=== PATIENT | male | born 1980 | race Caucasian/White ===

== ENCOUNTER 2020-01-30 14:07 | Emergency (ER) | payer OTHER, SELFPAY ==
--- NOTE | 2020-01-30 14:14 | ED.GENADULT ---
HPI - General Adult General Chief complaint: Eye Problems Stated complaint: Eye issues Time Seen by Provider: 01/30/20 14:24 Source: patient Mode of arrival: ambulatory Limitations: no limitations History of Present Illness HPI narrative: 39-year-old male patient presents to the [facility] with complaints of bilateral eye pain x1 week. Patient states he noticed a he has pain behind bilateral eyes and notices more in the evening time when it starts to get dark out. Patient denies any vision changes. Denies any itching or irritation to the eyes. Patient denies any discharge. Denies any fevers, body aches or chills. Patient denies wearing contacts or glasses. Patient denies taking anything for his pain. Related Data Home Medications Medication Instructions Recorded Confirmed gabapentin 600 mg PO TID 06/24/19 08/25/19 aspirin 81 mg PO DAILY 01/30/20 01/30/20 celecoxib 200 mg DAILY 01/30/20 01/30/20 oxycodone-acetaminophen 1 tablet Q4-5H PRN 01/30/20 01/30/20 Allergies Allergy/AdvReac Type Severity Reaction Status Date / Time No Known Allergies Allergy Verified 01/30/20 14:24 Review of Systems Review of Systems: Narrative: CONSTITUTIONAL: Denies fever, chills, or sweats. EYES: Denies visual changes, redness, or discharge. Positive pain behind bilateral eyes x1 week in the evening time. ENT: Denies rhinorrhea, congestion, sore throat, or otalgia. CARDIOVASCULAR: Denies chest pain, palpitations, or edema. RESPIRATORY: Denies cough or dyspnea. GASTROINTESTINAL: Denies abdominal pain, nausea, vomiting, or diarrhea. GENITOURINARY: Denies dysuria or hematuria. SKIN: Denies rash or itching. MUSCULOSKELETAL: Denies back pain, joint pain, or myalgia. NEUROLOGIC: Denies headache, numbness, or weakness. PSYCHIATRIC: Denies anxiety or depression. [facility] Past Medical History Medical History (Updated 01/30/20 @ 14:33 by DALLAS Cueto) Carpal tunnel syndrome Degenerative joint disease Hip replacement planned Left Surgical History Surgical History (Updated 01/30/20 @ 14:16 by DALLAS Cueto) H/O shoulder surgery Left Social History Social History Gender identity (if verbalized by the patient): Male Comments At the time of my signature I agree with nursing past medical history, surgical, social, and family history. There is no relevant family history pertinent to the presenting complaint. Exam Narrative: Exam Narrative: GENERAL: Well-appearing, well-nourished, and in no acute distress. HEAD: Normocephalic, atraumatic. EYES: PERRLA and EOM intact without limitation or complaint of pain, no periorbital soft tissue swelling ,no erythema, warmth or tenderness noted, no obvious deformity. No crusting or swelling.no tearing or draining.No photophobia. No nystagmus No FB or lesion on lid eversion. Corneas grossly clear, no obvious FB or hyphens/hypopyon. No injection to sclera. Lids and lashes clear. ENT: Nares clear, no rhinorrhea or epistaxis. Mucous membranes moist. NECK: Supple. No lymphadenopathy CHEST: Clear to auscultation. No respiratory distress. HEART: Regular rate and rhythm. No murmur heard. Normal peripheral pulses. ABDOMEN: Soft, nontender, nondistended, normal active bowel sounds. EXTREMITIES: Normal range of motion. No edema. SKIN: Warm, dry, no rash. NEURO: No focal deficits. Alert and oriented x3. Course Vital Signs Vital signs: Vital Signs Temperature 36.6 C 01/30/20 14:19 Pulse Rate 69 01/30/20 14:19 Respiratory Rate 01/30/20 14:19 Blood Pressure 122/80 01/30/20 14:19 Pulse Oximetry 98 01/30/20 14:19 Temperature 36.6 C 01/30/20 14:19 Pulse Rate 69 01/30/20 14:19 Respiratory Rate 01/30/20 14:19 Blood Pressure 122/80 01/30/20 14:19 Pulse Oximetry 98 01/30/20 14:19 Vital signs reviewed. Medical Decision Making Differential Diagnosis Differential Diagnosis: Differential diagnosis: Co
[2020-01-30 14:19] VITALS: BP 122/80; PULSE 69; RESP 16; TEMP 36.6; O2SAT 98
== END 2020-01-30 14:35 | disposition home or self-care (01) ==
PROVIDERS: Emergency Provider Nurse Practitioner Family; PCP Physician Assistant
DX: H57.13 Ocular pain, bilateral (principal); Z96.643 Presence of artificial hip joint, bilateral
CPT/HCPCS: 99212; G0463

== ENCOUNTER 2020-12-18 23:04 | Emergency (ER) | payer OTHER, SELFPAY ==
--- NOTE | ~2020-12-18 | XR_ITS ---
EXAMINATION: XR ribs LT 2V w CXR 2V DATE: 12/18/2020 23:32 INDICATION: Left rib pain. Fall. TECHNIQUE: Frontal and lateral views of the chest and 3 views of the left ribs were obtained. COMPARISON: None. FINDINGS: CHEST TWO VIEWS: There is no pneumonia, pleural effusion, or pneumothorax. The heart size is normal. There are prominent paracardial fat pads. LEFT RIBS: There are changes of distal left clavicle resection. There are radiopaque markers at dista l clavicle and coracoid process of left scapula. There is no rib fracture. IMPRESSION: 1. No rib fracture. Reviewed, dictated and finalized at location A. IMPRESSION: 1. No rib fracture.
[2020-12-18 23:11] VITALS: BP 144/81; PULSE 62; RESP 18; TEMP 36.1; O2SAT 99
[2020-12-18] MEDS: IBUPROFEN 600 MG TABLET PO (23:55)
[2020-12-18] MEDS: HYDROcodone/acetaminophen (*CRX) 5-325 MG TABLET 1 TAB PO (23:55)
--- NOTE | 2020-12-19 00:23 | ED.FALL ---
HPI - Fall General Chief Complaint: Fall Stated Complaint: left side pain after fall today Time Seen by Provider: 12/18/20 23:39 History of Present Illness HPI Narrative: Patient is a 40-year-old male who presents ER with left-sided rib pain. Patient was in his [employer] boat when he slipped and fell onto a metal piece of the boat. He did not fall out of the boat. He reports he laid inside the boat for about 20 minutes due to pain and discomfort. No difficulty breathing. Pain is worse with movement. Patient did not strike his head or lose consciousness. Related Data Allergies Allergy/AdvReac Type Severity Reaction Status Date / Time No Known Allergies Allergy Verified 12/18/20 23:40 Review of Systems Cardiovascular: Cardiovascular: Reports chest pain and Denies radiating jaw, neck or arm pain Respiratory: Respiratory: Denies cough and Denies dyspnea Gastrointestinal: Gastrointestinal: Denies abdominal pain, Denies nausea and Denies vomiting Genitourinary: Genitourinary: Reports no additional male genitourinary complaints and Denies hematuria [facility] Past Medical History Medical History (Updated 12/19/20 @ 00:29 by Chon Reed MD) Carpal tunnel syndrome Degenerative joint disease Hip replacement planned Left Surgical History Surgical History (Updated 01/30/20 @ 14:16 by DALLAS Cueto) H/O shoulder surgery Left Social History Social History Gender identity (if verbalized by the patient): Male Exam Narrative: Exam Narrative: GENERAL: Well-appearing, well-nourished, and in no acute distress. HEAD: Normocephalic, atraumatic. CHEST: Clear to auscultation. No respiratory distress. Tender palpation left lateral chest wall just posterior to mid axillary line over rib 9. No swelling or bruising. No crepitus. HEART: Regular rate and rhythm. Normal peripheral pulses. EXTREMITIES: Normal range of motion. No edema. SKIN: Warm, dry, no rash. NEURO: Alert and oriented x3. PSYCH: Normal mood and affect. Course Course Emergency Course: Patient informed of results. [place] and ibuprofen for pain here. Anti-inflammatories for home. Vital Signs Vital signs: Vital Signs Temperature 97.0 F L 05/05/21 23:11 Pulse Rate 62 12/18/20 23:11 Respiratory Rate 18 12/18/20 23:11 Blood Pressure 144/81 H 12/18/20 23:11 Pulse Oximetry 99 12/18/20 23:11 Temperature 97.0 F L 12/18/20 23:11 Pulse Rate 62 12/18/20 23:11 Respiratory Rate 18 12/18/20 23:11 Blood Pressure 144/81 H 12/18/20 23:11 Pulse Oximetry 99 12/18/20 23:11 MDM - Fall Imaging Data Radiologist's impression: ITS Impressions Ribs w/Chest X-Ray 12/18/20 23:33 IMPRESSION: 1. No rib fracture. Discharge Plan Discharge Clinical Impression: Chest wall contusion Patient Disposition: Home, Self-Care Condition: Stable Instructions: Chest Wall Pain (ED) Additional Instructions: Return the ER if you cannot breathe, you have fever over 100.4 ?F, you have new productive cough, you have additional concerns. Take anti-inflammatories to decrease your pain. Prescriptions: New naproxen 500 mg tablet 500 mg PO BID Qty: 14 RF: 0 Follow-up/Referrals: Sharee,TASHIA Villalobos [Primary Care Provider] - 1 Week
[2020-12-19 00:31] VITALS: BP 119/85; PULSE 66; RESP 16; TEMP 36.4; O2SAT 96
== END 2020-12-19 00:40 | disposition home or self-care (01) ==
PROVIDERS: Emergency Provider Emergency Medicine; PCP Physician Assistant
DX: S20.212A Contusion of left front wall of thorax, initial encounter (principal); Y93.19 Activity, other involving water and watercraft; W01.118A Fall on same level from slipping, tripping and stumbling with subsequent striking against other sharp object, initial encounter
CPT/HCPCS: 71046; 71100; 99283; A9270

== ENCOUNTER 2021-03-28 10:29 | Emergency (ER) | payer OTHER, SELFPAY ==
[2021-03-28 10:40] VITALS: BP 144/93; PULSE 70; RESP 18; TEMP 36.8; O2SAT 99
[2021-03-28 10:51] VITALS: BP 144/93; PULSE 70; RESP 18; TEMP 36.8; O2SAT 99
--- NOTE | 2021-03-28 11:01 | ED.EYEPROB ---
HPI - Eye Problem General Chief complaint: Eye Problems Stated complaint: eye problems Time Seen by Provider: 03/28/21 10:43 Source: patient and RN notes reviewed Mode of arrival: ambulatory Limitations: no limitations History of Present Illness HPI Narrative: Patient presents today complaining of burning to the left eye since 1400 yesterday while he was fishing. Denies known foreign body or injury to the eye. Reports possibly feeling foreign body sensation, and states the burning sensation that he feels is in 1 position in the lateral eye and does not move. Reports photophobia, but denies vision change. Rubbing or pushing on the eye decreases symptoms. He has tried eyedrops and flushing the eye without relief. He does not wear glasses or contacts. Upon arrival, patient's visual acuity in the left eye was 20/25 and right eye was 20/15. MD chief complaint: eye pain Related Data Allergies Allergy/AdvReac Type Severity Reaction Status Date / Time No Known Allergies Allergy Verified 03/28/21 10:33 Review of Systems Review of Systems: CONSTITUTIONAL: Denies body aches, fever, chills, or sweats. EYES: Denies visual changes, or discharge. + Left eye redness and burning with photophobia ENT: Denies rhinorrhea, congestion, sore throat, or otalgia. CARDIOVASCULAR: Denies chest pain, palpitations, or edema. RESPIRATORY: Denies cough or dyspnea. GASTROINTESTINAL: Denies abdominal pain, nausea, vomiting, or diarrhea. GENITOURINARY: Denies dysuria or hematuria. SKIN: Denies rash, itching, or wounds. MUSCULOSKELETAL: Denies back pain, joint pain, or myalgia. NEUROLOGIC: Denies headache, numbness, tingling, or weakness. PSYCH: Denies depression or anxiety. [facility] Past Medical History Medical History Carpal tunnel syndrome Degenerative joint disease Hip replacement planned Left Surgical History Surgical History H/O shoulder surgery Left Social History Social History Gender identity (if verbalized by the patient): Male Comments At time of signature, I have reviewed and agree with nursing past medical, surgical, social and family history unless otherwise noted. Please see nursing chart for further information. There is no relevant family history pertinent to the presenting complaint Exam Narrative: GENERAL: Well-appearing, well-nourished, and in no acute distress. HEAD: Normocephalic, atraumatic. EYES: EOMI. PERRL. No swelling or redness to the eyelids. Lashes normal. No drainage. See procedure note. ENT: Mucous membranes pink and moist. NECK: Normal AROM. Supple. CHEST: No respiratory distress. EXTREMITIES: Normal range of motion. No edema. SKIN: Warm, dry, no rash. Capillary refill normal. Normal skin turgor. NEURO: No focal deficits. Alert and oriented x3. Gait steady. PSYCH: Normal affect. No signs of depression or anxiety. Course Vital Signs Vital signs: Vital Signs Temperature 98.3 F 03/28/21 10:40 Pulse Rate 70 03/28/21 10:40 Respiratory Rate 18 03/28/21 10:40 Blood Pressure 144/93 H 03/28/21 10:40 Pulse Oximetry 99 03/28/21 10:40 Temperature 99.9 F H 03/28/21 10:51 Pulse Rate 74 03/28/21 10:51 Respiratory Rate 20 03/28/21 10:51 Blood Pressure 128/67 03/28/21 10:51 Pulse Oximetry 98 03/28/21 10:51 Reviewed. Pt has been instructed to follow up with his PCP regarding his elevated blood pressure today. Procedures Other Procedure Procedure 1: Other Procedure: Left eye was anesthetized with 1 drop of tetracaine and anesthesia was achieved. The eye was flushed with eye wash. Lid was inverted and examined. Moistened Qtip was used to sweep underneath the upper eyelid with 0 foreign bodies resulting. Cornea was dyed with fluorescein and 1 abrasions or ulcerations were noted.
== END 2021-03-28 11:15 | disposition home or self-care (01) ==
PROVIDERS: Emergency Provider Nurse Practitioner; PCP Physician Assistant
DX: S05.02XA Injury of conjunctiva and corneal abrasion without foreign body, left eye, initial encounter (principal); X58.XXXA Exposure to other specified factors, initial encounter
CPT/HCPCS: 99213; A9270; G0463

== ENCOUNTER 2021-05-24 19:30 | Emergency (ER) | payer OTHER, SELFPAY ==
--- NOTE | 2021-05-24 19:41 | ED.SKABFB ---
HPI - Skin/Abscess/Foreign Bdy General Chief complaint: Skin/Abscess/Foreign Body Stated complaint: Lump Lt upper arm Source: patient and RN notes reviewed Limitations: no limitations History of Present Illness HPI narrative: The patient, previously healthy, presents with skin eruption. Patient states he has a prior history of abscesses along the hairline of his posterior/ neck scalp. He recalls he was treated for it a couple years ago with antibiotics Bactrim, felt to be staph . He now reports a shorter 1 day history of left axillary swelling which is about dime-francine sized. No fever, streaking, spontaneous drainage or discharge; patient declines incision and drainage [like he had previously]. Related Data Allergies Allergy/AdvReac Type Severity Reaction Status Date / Time No Known Allergies Allergy Verified 05/24/21 19:39 Review of Systems Review of Systems: The patient has been informed that they may have pre-hypertension or Hypertension based on a BP reading in the department. I recommend that the patient call the primary care provider listed on their discharge instructions or a physician of their choice this week to arrange follow up for further evaluation of possible pre-hypertension or Hypertension General/Constitutional: No weight loss,fever Eyes: N0: Redness,discharge Ears/Nose/Throat: No: Epistaxis,ear discharge Respiratory: Denies: Hemoptysis Gastrointestinal: No Vomiting, Bleeding-rectal Skin: No Lumps, eruption Neurologic: No Focal Weakness,Sz Hematologic: Denies: Petechiae/Purpura Psychiatric: No: Suicida ideationl All Other Systems: Reviewed and Negative PMFSH Past Medical History Medical History Carpal tunnel syndrome Degenerative joint disease Hip replacement planned Left Surgical History Surgical History H/O shoulder surgery Left Social History Social History Gender identity (if verbalized by the patient): Male Comments At time of signature, agree with nursing past medical, surgical, social and family history. There is no relevant family history pertinent to the presenting complaint Exam Narrative: General Appearance: Well nourished/overweight, Normocephalic Eye: PERRLA, Conjunctiva clear Ear: External ear normal Nose: Normal nose, Nare clear Mouth/Throat: Normal appearing Neck Exam: Supple Respiratory: Airway patent, No respiratory distress Musculoskeletal: Moves all extremities, Non tender Spine/Back: Normal ROM Skin-axilla: Warm, Dry small, isolated francine sized area of induration w/o fluctuance ; small, developing pale central puncta Neurological: A&O x3 Psychiatric: Normal mood, Normal affect Course Vital Signs Vital signs: Vital Signs Temperature 97.1 F L 05/24/21 19:46 Pulse Rate 70 05/24/21 19:46 Respiratory Rate 18 05/24/21 19:46 Blood Pressure 149/87 H 05/24/21 19:46 Pulse Oximetry 99 05/24/21 19:46 Temperature 97.1 F L 05/24/21 19:46 Pulse Rate 70 05/24/21 19:46 Respiratory Rate 18 05/24/21 19:46 Blood Pressure 149/87 H 05/24/21 19:46 Pulse Oximetry 99 05/24/21 19:46 Discharge Plan Discharge Clinical Impression: Folliculitis, Pruritic condition Patient Disposition: Home, Self-Care Condition: Stable Instructions: Antibiotic Form, Folliculitis (ED) Additional Instructions: Keep photo log of area, return if worsens May apply hot pack, antibiotic ointment Prescriptions: New clindamycin HCl 300 mg capsule 300 mg PO TID Qty: 21 RF: 0 mupirocin 2 % ointment 1 applic TOPICAL TID Qty: 30 RF: 0 Follow-up/Referrals: Sharee,TASHIA Villalobos [Primary Care Provider] -
[2021-05-24 19:46] VITALS: BP 149/87; PULSE 70; RESP 18; TEMP 36.2; O2SAT 99
== END 2021-05-24 19:50 | disposition home or self-care (01) ==
PROVIDERS: Emergency Provider Emergency Medicine; PCP Physician Assistant
DX: L73.9 Follicular disorder, unspecified (principal); L29.9 Pruritus, unspecified
CPT/HCPCS: 99213; G0463

== ENCOUNTER 2021-07-25 11:47 | Emergency (ER) | payer OTHER, SELFPAY ==
--- NOTE | 2021-07-25 11:53 | ED.DENTAL ---
HPI - Dental/Oral General Chief complaint: Dental/Oral Stated complaint: toothache Time Seen by Provider: 07/25/21 11:53 Source: patient, RN notes reviewed and old records reviewed Mode of arrival: ambulatory Limitations: no limitations History of Present Illness HPI Narrative: 41-year-old male presents to the [facility] with complaints of dental pain. To the upper lower molars of the right side, left upper molar. States has been going on for 3 weeks No treatment prior to arrival. States cold water makes it worse. Multiple joint surgeries past. MD Complaint: tooth pain Related Data Home Medications Medication Instructions Recorded Confirmed No Home Medications 07/25/21 07/25/21 Allergies Allergy/AdvReac Type Severity Reaction Status Date / Time No Known Allergies Allergy Verified 07/25/21 12:01 Review of Systems Review of Systems: All systems reviewed & are unremarkable except as noted in HPI and below Constitutional: Constitutional: Reports no additional constitutional complaints, Denies chills and Denies fever(s) Eyes: Eyes: Reports no additional eye complaints ENT: Reports as per HPI Comments: dental pain Cardiovascular: Cardiovascular: Reports no additional cardiovascular complaints and Denies chest pain Respiratory: Respiratory: Reports no additional respiratory complaints and Denies cough Gastrointestinal: Gastrointestinal: Reports no additional gastrointestinal complaints, Denies abdominal pain, Denies nausea and Denies vomiting Musculoskeletal: Musculoskeletal: Reports no additional musculoskeletal complaints Integumentary/Breasts: Skin/Breast: Reports system reviewed and no additional complaints, except as docu Neurologic: Reports system reviewed and no additional complaints, except as documented Psychiatric: Psychiatric: Reports no additional psychiatric complaints Allergic/Immunologic: Allergic/Immunologic: Reports no additional allergic/immunologic complaints [facility] Past Medical History Medical History Carpal tunnel syndrome Degenerative joint disease Hip replacement planned Left Surgical History Surgical History H/O shoulder surgery Left Social History Social History Gender identity (if verbalized by the patient): Male Comments At the time of my signature, I reviewed and agree with the nursing past medical, surgical, social, and family history. There is no relevant family history pertinent to the patient complaint. Exam Const: General: healthy appearing, no acute distress and alert Nutritional Appearance: well nourished Orientation/consciousness: patient oriented x3 Limitations: no limitations HENMT: Head: normal to inspection Ears: external ears normal, TM's normal bilaterally and EAC's normal Teeth and gingiva: caries, gingiva abnormal edematous, diffusely erythematous and tender and poor dentition Teeth image: 1. Decay noted to the lateral aspect of tooth 2. Redness and inflammation noted around tooth 2 and 3. Poor dentition 3. Multiple caries noted, fillings noted. Throat: posterior oropharynx normal Eyes: Conjunctivae: conjunctivae normal Pupils: Equal, round and reactive pupils present Neck: Neck: normal visual inspection, no lymphadenopathy and no meningeal signs Chest: Chest palpation & inspection: normal inspection of the chest Resp: Effort & Inspection: normal respiratory effort Auscultation: clear to auscultation bilaterally Cardio: Rate: regular rate Rhythm: regular rhythm Back/Spine/Pelvis: Back: no CVA tenderness Skin: General skin exam: normal color Rashes: no rashes Wounds: no wounds Neuro: General: patient oriented x3, moves all extremities, no meningeal signs and no focal motor deficits Speech: normal speech Gait exam (Neuro): Normal gait present Extrem: General:
[2021-07-25 11:58] VITALS: BP 135/85; PULSE 64; RESP 16; TEMP 36.7; O2SAT 98
== END 2021-07-25 12:09 | disposition home or self-care (01) ==
PROVIDERS: Emergency Provider Nurse Practitioner; PCP Physician Assistant
DX: K02.9 Dental caries, unspecified (principal)
CPT/HCPCS: 99213; G0463